=== PATIENT | female | born 1955 | race Caucasian/White ===

== ENCOUNTER 2022-06-16 21:23 | Inpatient (IN) ==
[2022-06-16] MEDS ORDERED: Iodixanol (CONTRAST) 320 MG/ML 100 ML SDV IV ONE (21:31)
[2022-06-16 22:06] LABS: ABS Basophils 0.1 10^3/ul (0-0.2); ABS Eosinophils 0.1 10^3/ul (0-0.6); ABS Lymphocytes 2.8 10^3/ul (1.0-4.8); ABS Monocytes 0.4 10^3/ul (0-0.8); Eosinophil % 1.4 %; Hematocrit 45 % (35-47); Lymphocyte % 38.2 %; Mean Corpuscular HGB Conc 33 g/dL (31-36); Mean Corpuscular Hemoglobin 31 pg (27-31); Mean Corpuscular Volume 92 fL (80-97); Mean Platelet Volume 7.9 fL (7.4-10.4); Platelet Count 254 10^3/uL (150-450); Red Blood Count 4.86 10^6 /uL (3.70-4.87); Red Cell Distribution Width 15 % (10-15); White Blood Count 7.4 10^3/uL (3.5-10.8)
[2022-06-16 22:13] LABS: Activated Partial Thrombo Time 32.1 seconds (26.0-38.0); INR 0.95 (0.89-1.11)
[2022-06-16] MEDS ORDERED: Labetalol IV 5 MG/ML 20 ml VIAL IV PUSH ONE (22:44)
[2022-06-16 23:04] LABS: Albumin 4.8 g/dL (3.2-5.2); Albumin/Globulin Ratio 1.7 (1-3); Globulin 2.9 g/dL (2-4); Potassium 3.7 mmol/L (3.5-5.0); Total Bilirubin 0.4 mg/dL (0.2-1.0); Total Protein 7.7 g/dL (6.4-8.9); eGFR CKD-EPI 74.5 (>60)
[2022-06-17] MEDS: Aspirin EC 81 mg TAB.EC (enteric coated) PO SCH ×2 (00:43→09:26)
[2022-06-17 04:12] LABS: High Sensitivity Troponin 1 Hr 6 pg/mL (<15)
[2022-06-17 05:57] LABS: ABS Eosinophils 0.1 10^3/ul (0-0.6); ABS Lymphocytes 1.8 10^3/ul (1.0-4.8); ABS Monocytes 0.5 10^3/ul (0-0.8); ABS Neutrophils 3.2 10^3/ul (1.5-7.7); Eosinophil % 2.2 %; Hematocrit 39 % (35-47); Hemoglobin 13.1 g/dL (12.0-16.0); Lymphocyte % 32.5 %; Mean Corpuscular HGB Conc 34 g/dL (31-36); Mean Corpuscular Hemoglobin 30 pg (27-31); Mean Corpuscular Volume 90 fL (80-97); Mean Platelet Volume 7.5 fL (7.4-10.4); Platelet Count 211 10^3/uL (150-450); Red Blood Count 4.35 10^6 /uL (3.70-4.87); Red Cell Distribution Width 15 % (10-15); White Blood Count 5.7 10^3/uL (3.5-10.8)
[2022-06-17 06:37] LABS: Calcium 8.8 mg/dL (8.6-10.3); Potassium 3.6 mmol/L (3.5-5.0)
[2022-06-17] MEDS ORDERED: Labetalol IV 5 MG/ML 20 ml VIAL IV PUSH PRN (09:19)
[2022-06-17] MEDS ORDERED: Labetalol IV 5 MG/ML 20 ml VIAL IV PUSH ONE (15:09)
[2022-06-17] MEDS ORDERED: Lactated Ringers 1000 ml BAG 1,000 ML IV SCH (18:00)
[2022-06-17] MEDS ORDERED: Nicotine PATCH 7 MG/24 HR PATCH TRANSDERM SCH (19:00)
[2022-06-18] MEDS ORDERED: Pneumococcal Vac 23-Polyvalent IM ONE ×2 (01:00→08:00)
[2022-06-18 06:47] LABS: Calcium 8.8 mg/dL (8.6-10.3); Potassium 3.9 mmol/L (3.5-5.0)
[2022-06-18] MEDS ORDERED: Nicotine PATCH 7 MG/24 HR PATCH TRANSDERM SCH (09:00)
[2022-06-18] MEDS: Aspirin EC 81 mg TAB.EC (enteric coated) PO SCH (09:11)
[2022-06-18 11:37] VITALS: BP 179/80
== END 2022-06-18 13:50 | disposition home or self-care (01) | DRG 66 ==
LOC: ED 21:23 → SUATTDRO 23:32 → EDHOLD 23:32 → MEDTELE 06-17 16:00
PROVIDERS: ADMIT Internal Medicine; ATTEND Internal Medicine